=== PATIENT | female | born 1940 | race Caucasian/White ===

== ENCOUNTER 2020-04-28 14:15 | Inpatient (IN) | payer MEDICARE ==
[~2020-04-28] VITALS: Ht 170.2 cm; Wt 106.8 kg
[~2020-04-28 14:15] MED LIST: ACAR50TA5 PO; ALBU0.63 IH; ASPI-1012 PO; BENZ200C53 PO; CEFD300C3 PO; CRAN300T PO; DONE23TA14 PO; FERR325T22 PO; FOLI1TAB15 PO; FURO40TA5 PO; GLIP5TAB11 PO; HC1C1.5 TP; MAGN800O2 PO; MEMA28CA PO; MULT-1052 PO; POLY17PO29 PO; PRAV20TA4 PO; SENN1TAB PO; SERT100T12 PO; TOBR5DRO44 OU; [UNRECOGNIZED DRUG - OTHER] PO
[2020-04-28 14:59] LABS: CREATININE 1.2 mg/dL (0.5-1.5); POTASSIUM 3.4 mmol/L (3.5-5.1)
[2020-04-28 15:00] LABS: BASOPHILS % (AUTO) 0.2 % (0.0-5.0); HEMATOCRIT 27.7 % (36-48); MEAN CORPUSCULAR HEMOGLOBIN 31.6 pg (27.0-33.0); MEAN CORPUSCULAR HGB CONC 32.1 g/dL (32.0-36.0); MEAN CORPUSCULAR VOLUME 98.2 fL (79-99); MONOCYTES % (AUTO) 9.7 % (3.0-13.0); NEUTROPHILS % (AUTO) 81.5 % (40.0-77.0); PLATELET COUNT (AUTO) 239 K/uL (130-400); RED BLOOD CELL COUNT(AUTO) 2.82 MIL/uL (4.00-5.50); RED CELL DISTRIBUTION WIDTH 13.6 % (11.0-15.5)
[2020-04-28 15:04] LABS: BILIRUBIN,TOTAL 0.4 mg/dL (0.2-1.0); TOTAL PROTEIN, SERUM 6.7 g/dL (6.0-8.3)
[2020-04-28 15:41] LABS: INR 0.99 (0.85-1.15); PARTIAL THROMBOPLASTIN TIME 26.9 SEC (26.3-35.5); PROTHROMBIN TIME 10.7 SEC (9.6-11.6)
[2020-04-28] MEDS ORDERED: INSULIN HUMULIN R 100 UNIT/ML 3ML ONE ×2 (16:10→23:21)
[2020-04-28 17:30] LABS: APPEARANCE,URINE Cloudy (CLEAR); BILIRUBIN,URINE Negative (NEGATIVE); COLOR,URINE Yellow (YELLOW); GLUCOSE, URINE (UA) 500 mg/dL (NEGATIVE); KETONES,URINE Negative (NEGATIVE); LEUKOCYTE ESTERASE ,URINE Moderate (NEGATIVE); NITRATE,URINE Positive (NEGATIVE); OCCULT BLOOD,URINE Large (NEGATIVE); PH,URINE 5.5 (5.0-8.0); PROTEIN,URINE POS 1+ mg/dL (NEGATIVE)
[2020-04-28] MEDS ORDERED: CEFTRIAXONE SODIUM 1 GM ONE (17:52)
[2020-04-28 17:59] LABS: BACTERIA,URINE Moderate /HPF (None Seen); MUCUS,URINE Few LPF (None Seen); SQUAMOUS EPITHELIAL CELL,UR Few /HPF (0-2)
[2020-04-28] MEDS ORDERED: ONDANSETRON HCL 4 MG/2 ML VIAL IV PRN (18:45)
[2020-04-28] MEDS ORDERED: HYDRALAZINE HCL 20 MG/ML VIAL IV PRN (18:45)
[2020-04-28] MEDS ORDERED: CEFTRIAXONE SODIUM 1 GM IV SCH (18:45)
[2020-04-28] MEDS ORDERED: LACTULOSE 20 GM/30 ML UDCUP PO PRN (18:45)
[2020-04-28] MEDS ORDERED: ACETAMINOPHEN 325 MG TAB PO PRN ×2 (18:45)
[2020-04-28] MEDS ORDERED: POTASSIUM CHLORIDE 10MEQ/100ML 100 ML IV ONE (23:19)
[2020-04-28] MEDS ORDERED: DEXTROSE 5%-WATER 1,000 ML IV ONE (23:19)
[2020-04-28] MEDS ORDERED: FAMOTIDINE/PF 20 MG/2 ML VIAL IV ONE (23:20)
[2020-04-28] MEDS ORDERED: LIDOCAINE HCL-MPF 1% 2ML VIAL ONE (23:20)
[2020-04-29 01:15] VITALS: BP 138/86
[2020-04-29] MEDS ORDERED: KETO30CR21 TP (01:33)
[2020-04-29] MEDS ORDERED: HYDR30CR77 RC (01:33)
[2020-04-29] MEDS ORDERED: CLON0.1T PO (01:33)
[2020-04-29] MEDS ORDERED: SILV50CR31 TP (01:33)
[2020-04-29] MEDS ORDERED: METH1TAB30 PO (01:33)
[2020-04-29] MEDS: DEXTROSE 5%-WATER 1,000 ML IV SCH ×2 (02:07→21:27)
[2020-04-29] MEDS: MORPHINE SULFATE 2 MG/ML 1ML SYG IV PRN (02:08)
[2020-04-29 03:44] LABS: BASOPHILS % (AUTO) 0.2 % (0.0-5.0); HEMATOCRIT 22.8 % (36-48); LYMPHOCYTES % (AUTO) 8.4 % (21.0-51.0); MEAN CORPUSCULAR HEMOGLOBIN 31.2 pg (27.0-33.0); MEAN CORPUSCULAR HGB CONC 31.6 g/dL (32.0-36.0); MEAN CORPUSCULAR VOLUME 98.7 fL (79-99); MONOCYTES % (AUTO) 11.6 % (3.0-13.0); NEUTROPHILS % (AUTO) 79.2 % (40.0-77.0); PLATELET COUNT (AUTO) 194 K/uL (130-400); RED BLOOD CELL COUNT(AUTO) 2.31 MIL/uL (4.00-5.50); RED CELL DISTRIBUTION WIDTH 13.8 % (11.0-15.5); WHITE BLOOD COUNT (AUTO) 19.5 K/uL (4.8-10.8)
[2020-04-29 04:00] VITALS: BP 119/46
[2020-04-29] MEDS: POTASSIUM CHLORIDE 10MEQ/100ML 100 ML IV PRN ×2 (05:28→12:06)
[2020-04-29] MEDS: INSULIN HUMULIN R 100 UNIT/ML 3ML SQ SCH ×4 (06:08→17:24)
[2020-04-29 08:10] VITALS: BP 131/75
[2020-04-29] MEDS: FAMOTIDINE/PF 20 MG/2 ML VIAL IV SCH (08:31)
[2020-04-29] MEDS ORDERED: POTASSIUM CHLORIDE 20MEQ/100ML 100 ML IV PRN (09:15)
[2020-04-29] MEDS ORDERED: LIDOCAINE HCL-MPF 1% 2ML VIAL IV PRN (09:15)
--- NOTE | 2020-04-29 10:53 | NUR ---
[facility] CM called pt spouse on facesheet, left voicemail to Jose Elias Kidd , pending call back. Obtained info from previous admi records. Pt is bedbound/dependent, lives at home with spouse. Pt has a hospital bed w/air mattress, jeannette lift, walker, wheelchair, shower chair, active w/[facility] 3x/wk. Been to [facility] in the past. DC plan back to home vs SNF, pending spouse and pt to decide. CM to cont to follow up. Addendum: 04/29/20 at 1055 by EDUARDA VILLAGRAN LVN Amended: Links added.
[2020-04-29 11:20] VITALS: BP 133/54
[2020-04-29] MEDS: ZOSYN 3.375GM+NS 50ML 50 ML IV SCH ×2 (12:06→21:27)
[2020-04-29] MEDS: LIDOCAINE HCL-MPF 1% 2ML VIAL IV PRN (12:07)
--- NOTE | 2020-04-29 14:31 | NUR ---
FAMILY UPDATE SARAI PERSONAL SITTER AT BEDSIDE UPDATED WITH STATUS AND PLAN OF CARE, STATES SHE IS CONTACT WITH FAMILY, NO QUESTIONS AT THIS TIME.
[2020-04-29 16:55] VITALS: BP 105/46
[2020-04-29 19:00] VITALS: BP 125/70
[2020-04-30] VITALS (7 sets, daily range): BP systolic 122–134; BP diastolic 42–69
[2020-04-30] MEDS: ZOSYN 3.375GM+NS 50ML 50 ML IV SCH ×3 (05:01→19:52)
[2020-04-30] MEDS: MORPHINE SULFATE 2 MG/ML 1ML SYG IV PRN (05:34)
[2020-04-30 05:56] LABS: BASOPHILS % (AUTO) 0.1 % (0.0-5.0); EOSINOPHILS % (AUTO) 0.4 % (0.0-8.0); LYMPHOCYTES % (AUTO) 7.9 % (21.0-51.0); MEAN CORPUSCULAR HEMOGLOBIN 31.3 pg (27.0-33.0); MEAN CORPUSCULAR HGB CONC 31.4 g/dL (32.0-36.0); MEAN CORPUSCULAR VOLUME 99.5 fL (79-99); MONOCYTES % (AUTO) 8.3 % (3.0-13.0); NEUTROPHILS % (AUTO) 82.2 % (40.0-77.0); PLATELET COUNT (AUTO) 178 K/uL (130-400); RED BLOOD CELL COUNT(AUTO) 1.92 MIL/uL (4.00-5.50); RED CELL DISTRIBUTION WIDTH 13.8 % (11.0-15.5); WHITE BLOOD COUNT (AUTO) 15.2 K/uL (4.8-10.8)
[2020-04-30 06:43] LABS: ALBUMIN 2.2 g/dL (3.5-5.0); BILIRUBIN,TOTAL 0.3 mg/dL (0.2-1.0); CREATININE 0.9 mg/dL (0.5-1.5); POTASSIUM 3.6 mmol/L (3.5-5.1); TOTAL PROTEIN, SERUM 5.8 g/dL (6.0-8.3)
--- NOTE | 2020-04-30 07:00 | NUR ---
PATIENT UPDATE Pt's hemoglobin dropped fr 7.2 last night to 6.7 this am, no bleeding noted externally. Lab asked to repeat the cbc, at the same time included the type and screen with the labs. Belkis Atwood SOFTWARE SECURITY CONSULTANT called and was made aware about what's going on with the pt with orders for type and screen and Cardiology consult. Pt medicated once with morphine 2 mg slow iv push before she was given a bedbath. With expressive aphasia, with a 24 hr private sitter at the bedside. Pt on aspiration precautions, head of the bed up at 40 degrees, repositioned in the bed every 2 hrs ,rt leg with an immobilizer in place.
[2020-04-30 07:06] LABS: HEMATOCRIT 19.1 % (36-48)
[2020-04-30] MEDS: INSULIN HUMULIN R 100 UNIT/ML 3ML SQ SCH ×5 (07:56→20:48)
[2020-04-30] MEDS: FAMOTIDINE/PF 20 MG/2 ML VIAL IV SCH (10:28)
[2020-04-30] MEDS ORDERED: SODIUM CHLORIDE 0.9% 500ML 500 ML IV ONE (13:59)
[2020-04-30] MEDS ORDERED: ACETAMINOPHEN 650 MG SUPPOSITORY RC ONE (20:44)
[2020-04-30] MEDS ORDERED: SODIUM CHLORIDE 0.9% 500ML 500 ML IV SCH (22:00)
--- NOTE | 2020-04-30 22:00 | NUR ---
spoke with sid hanna about patient's fever of 101.4, he ordered a suppository tynelol 650 mg. after i gave it, her temperature was 100.5 and i call him again at 23:20. he ordered blood cultures x 2, 500 ml of sodium chloride bolus, chest x-ray stat, lactic acid and procalcitonin.
[2020-05-01] MEDS: ZOSYN 3.375GM+NS 50ML 50 ML IV SCH ×3 (01:55→19:19)
[2020-05-01 04:06] VITALS: BP 123/63
[2020-05-01 05:00] LABS: BASOPHILS % (AUTO) 0.1 % (0.0-5.0); EOSINOPHILS % (AUTO) 0.6 % (0.0-8.0); HEMATOCRIT 23.7 % (36-48); LYMPHOCYTES % (AUTO) 5.4 % (21.0-51.0); MEAN CORPUSCULAR HEMOGLOBIN 30.5 pg (27.0-33.0); MEAN CORPUSCULAR HGB CONC 31.6 g/dL (32.0-36.0); MEAN CORPUSCULAR VOLUME 96.3 fL (79-99); MONOCYTES % (AUTO) 6.5 % (3.0-13.0); NEUTROPHILS % (AUTO) 86.7 % (40.0-77.0); PLATELET COUNT (AUTO) 190 K/uL (130-400); RED BLOOD CELL COUNT(AUTO) 2.46 MIL/uL (4.00-5.50); RED CELL DISTRIBUTION WIDTH 14.6 % (11.0-15.5); WHITE BLOOD COUNT (AUTO) 20.2 K/uL (4.8-10.8)
[2020-05-01 05:31] LABS: BILIRUBIN,TOTAL 0.6 mg/dL (0.2-1.0); CREATININE 0.9 mg/dL (0.5-1.5); POTASSIUM 3.6 mmol/L (3.5-5.1); TOTAL PROTEIN, SERUM 5.9 g/dL (6.0-8.3)
[2020-05-01] MEDS: INSULIN HUMULIN R 100 UNIT/ML 3ML SQ SCH ×3 (05:58→20:48)
[2020-05-01 07:58] VITALS: BP 128/71
[2020-05-01] MEDS: FAMOTIDINE/PF 20 MG/2 ML VIAL IV SCH (08:08)
[2020-05-01 11:19] VITALS: BP 137/53
[2020-05-01] MEDS ORDERED: SODIUM CHLORIDE 0.9% 250 ML IV ONE (12:18)
[2020-05-01 16:00] VITALS: BP 119/59
--- NOTE | 2020-05-01 16:40 | NUR ---
1458 BPCI Letter given to family member in room.
[2020-05-01 19:35] VITALS: BP 129/68
[2020-05-02] VITALS (7 sets, daily range): BP systolic 119–144; BP diastolic 51–71
[2020-05-02] MEDS: ZOSYN 3.375GM+NS 50ML 50 ML IV SCH ×3 (03:27→19:46)
[2020-05-02 03:49] LABS: BASOPHILS % (AUTO) 0.1 % (0.0-5.0); EOSINOPHILS % (AUTO) 1.6 % (0.0-8.0); HEMATOCRIT 24.5 % (36-48); LYMPHOCYTES % (AUTO) 4.4 % (21.0-51.0); MEAN CORPUSCULAR HEMOGLOBIN 31.2 pg (27.0-33.0); MEAN CORPUSCULAR HGB CONC 32.2 g/dL (32.0-36.0); MEAN CORPUSCULAR VOLUME 96.8 fL (79-99); MONOCYTES % (AUTO) 7.8 % (3.0-13.0); NEUTROPHILS % (AUTO) 85.1 % (40.0-77.0); NUCLEATED RED BLOOD CELLS 0.1 % (0.0-0.19); PLATELET COUNT (AUTO) 228 K/uL (130-400); RED BLOOD CELL COUNT(AUTO) 2.53 MIL/uL (4.00-5.50); RED CELL DISTRIBUTION WIDTH 14.3 % (11.0-15.5); WHITE BLOOD COUNT (AUTO) 23.9 K/uL (4.8-10.8)
[2020-05-02 04:04] LABS: BILIRUBIN,TOTAL 0.6 mg/dL (0.2-1.0); CREATININE 0.8 mg/dL (0.5-1.5); POTASSIUM 3.5 mmol/L (3.5-5.1); TOTAL PROTEIN, SERUM 6.2 g/dL (6.0-8.3)
[2020-05-02 04:32] LABS: CRP QUANTITATIVE 507.3 mg/L (0.00-9.0)
[2020-05-02] MEDS: INSULIN HUMULIN R 100 UNIT/ML 3ML SQ SCH ×4 (05:54→22:22)
[2020-05-02] MEDS ORDERED: POTASSIUM CHLORIDE 20 MEQ ERTAB PO PRN (08:00)
[2020-05-02] MEDS: FAMOTIDINE/PF 20 MG/2 ML VIAL IV SCH (09:07)
[2020-05-02] MEDS: POTASSIUM CHLORIDE 10% ELIXIR 20 MEQ/15 ML UDCUP PO PRN ×2 (09:16→18:32)
[2020-05-02] MEDS ORDERED: VANCOMYCIN PROTOCOL PER PHARMACY IV SCH (11:45)
[2020-05-02] MEDS ORDERED: COMPOUND IV REFRIGERATED 1 EACH IVSOLN MISC PRN (12:00)
[2020-05-02] MEDS: VANCOMYCIN 1.25 GM in SODIUM CHLORIDE 0.9% 250 ML IV SCH (13:17)
--- NOTE | 2020-05-02 17:30 | NUR ---
1 UNIT Packed Red Blood Cells started
--- NOTE | 2020-05-02 19:30 | NUR ---
PM Assessment Received pt with PRBC unit # [id number] in progress being infused via dial a flow, need to stop at this time site noted infiltrated. Attempt to find a new acces, unsuccessful together with another nurse Rosa RN. Phoned wiliam ZAMUDIO stated to asked CCU charge nurse Lourdes for assistance & to use a vein finder. Phoned Lourdes MCKEON & was made aware I need assistance in re- starting the IV access since I have a blood transfusion that need to be infuse & be finish by 2129. Per Lourdes MCKEON stated she will be coming to assist.
--- NOTE | 2020-05-02 20:40 | NUR ---
Re: Infiltrated IV Access Lourdes dry room operator nurse from CCU brought Cat RN from ED all gear up stated wearing new gown, shield, mask,shoe cover as reported will be starting a new IV access on this case.
--- NOTE | 2020-05-02 21:05 | NUR ---
Re: New IV Access Cat RN successfully able to start aseptically a new access x 2 attempt to the left arm, failed then to the right breast area close to the nipple, gauge 22, blood re-started at this time, at 150 cc/hr via dial a flow. Requested private pay sitter at the bedside to make sure pt won't place her hand on top of the right breast as this is where the new IV access is located, agreed.
--- NOTE | 2020-05-02 21:30 | NUR ---
Re: PRBC transfusion One unit PRBC transfusion completed at this time with no reactions noted.
--- NOTE | 2020-05-02 22:25 | NUR ---
Re: Last BM Per private sitter at the bedside Omar stated last BM on their record was 04/27/2020, attempt to give pt slowly Lactulose orally, given only 5cc when pt noted to constantly coughing, discontinued the Lactulose. I verified with the sitter if pt does cough when being fed, stated since pt got sick this has been happening.I inform the sitter that I will notify MD in AM of this issue as we might need to have a swallowing test to make sure pt won't be aspirating. Sitter instructed not to give the pt anything orally for now.
[2020-05-03] MEDS: VANCOMYCIN 1.25 GM in SODIUM CHLORIDE 0.9% 250 ML IV SCH ×2 (00:21→12:53)
[2020-05-03] MEDS: ZOSYN 3.375GM+NS 50ML 50 ML IV SCH ×3 (03:41→21:11)
[2020-05-03 03:43] LABS: HEMATOCRIT 24.9 % (36-48); MEAN CORPUSCULAR HEMOGLOBIN 29.7 pg (27.0-33.0); MEAN CORPUSCULAR HGB CONC 30.9 g/dL (32.0-36.0); MEAN CORPUSCULAR VOLUME 96.1 fL (79-99); NUCLEATED RED BLOOD CELLS 0.2 % (0.0-0.19); RED BLOOD CELL COUNT(AUTO) 2.59 MIL/uL (4.00-5.50); RED CELL DISTRIBUTION WIDTH 15.9 % (11.0-15.5); WHITE BLOOD COUNT (AUTO) 18.2 K/uL (4.8-10.8)
[2020-05-03 03:55] LABS: CREATININE 0.8 mg/dL (0.5-1.5); POTASSIUM 3.5 mmol/L (3.5-5.1)
[2020-05-03 04:00] VITALS: BP 140/71
[2020-05-03 04:11] LABS: ALBUMIN 1.8 g/dL (3.5-5.0); BILIRUBIN,TOTAL 0.6 mg/dL (0.2-1.0); TOTAL PROTEIN, SERUM 5.9 g/dL (6.0-8.3)
[2020-05-03 04:18] LABS: CRP QUANTITATIVE 380.1 mg/L (0.00-9.0)
[2020-05-03] MEDS: INSULIN HUMULIN R 100 UNIT/ML 3ML SQ SCH ×4 (06:27→22:58)
[2020-05-03 08:01] VITALS: BP 139/73
[2020-05-03] MEDS ORDERED: BISACODYL 10 MG SUPP.RECT RC SCH (08:45)
[2020-05-03] MEDS: FAMOTIDINE/PF 20 MG/2 ML VIAL IV SCH (09:00)
[2020-05-03 12:06] VITALS: BP 154/48
--- NOTE | 2020-05-03 12:12 | NUR ---
DC PLAN CALLED PATIENT ROOM. PATIENT HAS A PRIVATE CAREGIVER AT BEDSIDE. SAID SHE HAD NOT BEEN TOLD FROM NURSING STAFF REGARDING THERAPY. SAID TO SPEAK TO NURSE TO SEE IF THAT IS EVEN A ORDER. PATIENT STILL PENDING SURGERY. PER NURSING NOTE NO BM SINCE 04/27. REFUGIO WILL CONTINUE TO FOLLOW. Addendum: 05/03/20 at 1214 by PATRICK BENNETT RN CM Amended: Links added.
[2020-05-03 15:28] LABS: INR 0.92 (0.85-1.15)
[2020-05-03 16:25] VITALS: BP 142/44
--- NOTE | 2020-05-03 17:00 | NUR ---
BOWEL MOVEMENT pt had a bowel movement x 1 today incontinent after suppository given specimen sent to lab for occult blood
--- NOTE | 2020-05-03 19:15 | NUR ---
FOLLOWED UP REGARDING PRBC TRANSFUSION: Ordered to transfused 2 units of PTR== Addendum: 05/03/20 at 2018 by KIYA VIGIL RN RN Ordered to Type and Screen, transfused 2 units of PRBC. To give 1 unit of bag first then to transfused second unit after H and H was checked.
[2020-05-03 20:00] VITALS: BP 137/76
--- NOTE | 2020-05-03 20:31 | NUR ---
PICC LINE UNSUCCESSFUL Reported to hospitalist Ava FNP that its impossible to give a unit of bag , since IV site located at the right side of the breast. Ordered to do H and H q6hrs x 3.
--- NOTE | 2020-05-03 20:36 | NUR ---
UNABLE TO ACCESS LEFT ARM BASILIC, AND CEPHALIC VEINS AFTER MULTIPLE ATTEMPTS. PT VERY DIFFICULT IV ACCESS. RIGHT ARM NOT FAVORABLE BECAUSE PT HAS VERY LIMITED RANGE OF MOTION. WILL ASK FOR ANOTHER PICC NURSE TO ATTEMPT PICC TOMORROW.
--- NOTE | 2020-05-03 20:55 | NUR ---
PIV LINE ACCESS: EUGENE Hawthorne tried to insert PIV line #20 g aseptically to Rt Wrist but unsuccessful x1 attempt. There's a good blood return but blew up when flushing done.
[2020-05-03 21:16] LABS: HEMATOCRIT 26.3 % (36-48)
[2020-05-03 23:50] VITALS: BP 125/70
[2020-05-04] MEDS: VANCOMYCIN 1.25 GM in SODIUM CHLORIDE 0.9% 250 ML IV SCH ×3 (01:01→23:58)
[2020-05-04 03:55] VITALS: BP 131/62
[2020-05-04 05:15] LABS: HEMATOCRIT 24.5 % (36-48); MEAN CORPUSCULAR HEMOGLOBIN 29.6 pg (27.0-33.0); MEAN CORPUSCULAR HGB CONC 30.2 g/dL (32.0-36.0); NUCLEATED RED BLOOD CELLS 0.3 % (0.0-0.19); RED BLOOD CELL COUNT(AUTO) 2.5 MIL/uL (4.00-5.50); RED CELL DISTRIBUTION WIDTH 15.7 % (11.0-15.5); WHITE BLOOD COUNT (AUTO) 11.9 K/uL (4.8-10.8)
[2020-05-04 05:38] LABS: ALBUMIN 1.7 g/dL (3.5-5.0); BILIRUBIN,TOTAL 0.5 mg/dL (0.2-1.0); CREATININE 0.8 mg/dL (0.5-1.5); POTASSIUM 3.3 mmol/L (3.5-5.1); TOTAL PROTEIN, SERUM 5.7 g/dL (6.0-8.3)
[2020-05-04] MEDS: ZOSYN 3.375GM+NS 50ML 50 ML IV SCH ×3 (05:43→20:20)
[2020-05-04] MEDS: INSULIN HUMULIN R 100 UNIT/ML 3ML SQ SCH ×4 (06:44→20:18)
[2020-05-04 08:00] VITALS: BP 145/88
[2020-05-04] MEDS: FAMOTIDINE/PF 20 MG/2 ML VIAL IV SCH (09:00)
--- NOTE | 2020-05-04 14:18 | NUR ---
RD NOTIFICATION Pt admitted with R-Femur Fracture, UTI. Pt with weakness and AMS, Alzheimer's. Pt tolerating 75gm CC, Finely chopped diet order as per EMR. Poor PO intake. Pending PICC, pending transfusion. Gastroenterology consulted. WBC 11.9, Hgb 7.4, Na 158, BG 195, Alb 1.7. Recommend Glucerna TID, as medically feasible. Recommend 60mL ProMod BID, as medically feasible. RD to continue to monitor. Please notify RD as additional nutrition concerns arise. Thank you.
--- NOTE | 2020-05-04 15:26 | NUR ---
DYSPHAGIA EVAL COMPLETED. +S/S OF ASPIRATION. RECOMMEND SHORT-TERM ALTERNATE MEANS OF NUTRITION/HYDRATION. RECOMMENDATIONS: DYSPHAGIA THERAPY 3-5X WEEK TO INCREASE ORAL MOTOR ROM AND PHARYNGEAL SWALLOW: LTG#1: Pt WILL TOLERATE LEAST RESTRICTIVE DIET TO MEET NUTRITION/HYDRATION WITH NO S/S OF ASPIRATION. LTG#2: SKILLED EDUCATION Pt/FAMILY/STAFF STG#1: Pt WILL PARTICIPATE IN THERAPEUTIC TRIALS OF PUREED, NECTAR-THICK LIQUIDS WITH NO OVERT S/S OF ASPIRATION. STG#2: PT WILL BE ABLE TO PARTICIPATE IN MBSS AFTER 2-4 WEEKS OF THERAPEUTIC INTERVENTION. STG#3: SKILLED EDUCATION Pt/FAMILY/STAFF. [id number] FIRER LOCOMOTIVE SPOKE TO MACKENZIE MENESES AND DAUGHTER SARANYA PHELPS ON RESULTS AND RECOMMENDATIONS FOR ALTERNATE MEANS OF NUTRITION/HYDRATION. FIRER LOCOMOTIVE EDUCATED FAMILY ON RISKS AND CONSEQUENCES OF ASPIRATION. FIRER LOCOMOTIVE REVIEWED EFFECTS OF ALZHEIMER'S ON SWALLOWING FUNCTION (VERBALIZED MD HAD REVIEWED WITH THEM WHEN Pt WAS DIAGNOSED 15 YEARS AGO). THEY VERBALIZED THAT THEY WOULD PREFER QUALITY OF LIFE AT THIS POINT IN TIME. THEREFORE, THEY WOULD NOT WANT LONG-TERM ALTERNATE MEANS OF NUTRITION/HYDRATION. THEY ARE AGREEABLE TO SHORT-TERM ALTERNATE MEANS OF NUTRITION/HYDRATION WITH ATTEMPTS FOR P.O. THEY PLAN TO RESUME P.O. WHEN THEY GO HOME. Addendum: 05/04/20 at 1537 by GAURANG TRIPATHI [facility] Amended: Links added.
[2020-05-04 16:00] VITALS: BP 149/78
--- NOTE | 2020-05-04 17:24 | NUR ---
CALL FROM FITO DAUGHTER OF PATIENT AGREED WITH SPEECH ON PLACING NGT..
--- NOTE | 2020-05-04 18:00 | NUR ---
called to picc line nurse regarding noticed leaking to midline . per picc line nurse edilberto line is in place to just reinforce with a dressing and monitor . will cont to monitor
[2020-05-04 20:00] VITALS: BP 132/99
[2020-05-04 20:56] LABS: HEMATOCRIT 26.8 % (36-48)
[2020-05-04] MEDS: LIDOCAINE HCL-MPF 1% 2ML VIAL IV PRN (21:35)
[2020-05-04] MEDS: POTASSIUM CHLORIDE 10MEQ/100ML 100 ML IV PRN (21:36)
[2020-05-05] VITALS: BP 145/66
--- NOTE | 2020-05-05 02:57 | NUR ---
patient's midline is leaking zosyn all over the bed and her gown as well as on the kerlex that i wrapped around her. spoke with head housekeeper, meron, about it and she will let the picc line nurse from the day know to reevaluate the midline in the am.
[2020-05-05] MEDS: ZOSYN 3.375GM+NS 50ML 50 ML IV SCH (02:58)
[2020-05-05 03:36] LABS: BASOPHILS % (AUTO) 0.3 % (0.0-5.0); HEMATOCRIT 24.6 % (36-48); LYMPHOCYTES % (AUTO) 8.5 % (21.0-51.0); MEAN CORPUSCULAR HEMOGLOBIN 29.9 pg (27.0-33.0); MEAN CORPUSCULAR HGB CONC 30.9 g/dL (32.0-36.0); MEAN CORPUSCULAR VOLUME 96.9 fL (79-99); NEUTROPHILS % (AUTO) 74.7 % (40.0-77.0); NUCLEATED RED BLOOD CELLS 0.4 % (0.0-0.19); PLATELET COUNT (AUTO) 273 K/uL (130-400); RED BLOOD CELL COUNT(AUTO) 2.54 MIL/uL (4.00-5.50); RED CELL DISTRIBUTION WIDTH 15.3 % (11.0-15.5)
[2020-05-05 03:55] LABS: ALBUMIN 1.8 g/dL (3.5-5.0); BILIRUBIN,TOTAL 0.6 mg/dL (0.2-1.0); CREATININE 0.9 mg/dL (0.5-1.5); POTASSIUM 3.2 mmol/L (3.5-5.1); TOTAL PROTEIN, SERUM 5.9 g/dL (6.0-8.3)
[2020-05-05 04:00] VITALS: BP 158/88
[2020-05-05] MEDS: POTASSIUM CHLORIDE 10% ELIXIR 20 MEQ/15 ML UDCUP PO PRN ×3 (04:26→20:01)
[2020-05-05] MEDS: INSULIN HUMULIN R 100 UNIT/ML 3ML SQ SCH ×3 (06:19→20:46)
[2020-05-05 08:23] VITALS: BP 159/76
[2020-05-05 09:40] LABS: HEMATOCRIT 26.1 % (36-48)
--- NOTE | 2020-05-05 09:57 | NUR ---
RD FOLLOW UP Pt s/p ST eval;+S/S aspiration, short term altered means nutrition recommend. Recommend continuous Tube Feeding, Vital AF 1.2 @goal of 50mls/hr (1440kcal, 90gm protein, 973 free H2O). Recommend Flush of 150mls Q4Hrs. Recommendations faxed to 3rd floor, Pod A (ext. [phone]). RN notified. NUTRITION NOTE: WBC 14.0, Na 157, K 3.2 BG 223, Alb 1.8. RD to continue to monitor.
[2020-05-05] MEDS: FAMOTIDINE/PF 20 MG/2 ML VIAL IV SCH (10:27)
[2020-05-05 11:45] VITALS: BP 160/71
[2020-05-05 14:06] LABS: INR 0.98 (0.85-1.15); PROTHROMBIN TIME 10.6 SEC (9.6-11.6)
--- NOTE | 2020-05-05 14:25 | NUR ---
TREATMENT COMPLETED. Pt'S DAUGHTER SARANYA AT BEDSIDE AT THE TIME OF THE SESSION. Pt RAISED TO 90 DEGREES IN BED DURING THE SESSION. SOLE INKER PROVIDED ORAL CARE. Pt PARTICIPATED IN THERAPEUTIC TRIALS OF ADVANCED TRIALS OF THIN LIQUIDS VIA TSP X5 WITH IMPROVED LINGUAL LATERALIZATION. LABIAL SEAL IS WEAK WITH ANTERIOR SPILLAGE NOTED. Pt WITH TRIALS OF NECTAR-THICK LIQUIDS X2 WITH IMPROVED SWALLOW TRIGGER AND NO OVERT S/S OF ASPIRATION. Pt WITH +S.S OF ASPIRATION OF WEAK COUGH RESPONSE WITH THIN LIQUIDS VIA STRAW (INTAKE AT HOME WITH STRAW). Pt PARTICIPATED IN TRIALS OF PUREED TEXTURE X3 WITH NO OVERT S/S OF ASPIRATION. RESIDUE PRESENT IN TONGUE BODY WITH MULTIPLE SWALLOWS PRESENT. SOLE INKER EDUCATED DAUGHTER ON RISKS AND CONSEQUENCES OF ASPIRATION. NG TUBE IN PLACE AT THIS TIME. SKILLED SPEECH THERAPY CONTINUED TO BE RECOMMENDED 3-5X WEEK. SOLE INKER COORDINATED CARE WITH NURSE SANJIV. Addendum: 05/05/[address] Amended: Links added.
--- NOTE | 2020-05-05 14:26 | NUR ---
ORDER NOTED IN CHART FOR JANUARY CATH PLACEMENT BY IR. CLARIFIED ORDER WITH DR. MARIELA TRONCOSO, WHO STATED ORDER SHOULD READ CENTRAL LINE PLACEMENT FOR IV ANTIBIOTICS AND FLUIDS. ORDER EDITED TO REFLECT CORRECT PROCEDURE. CALL PLACED TO EXTRUSION SUPERVISOR TO NOTIFY, NO ANSWER. MESSAGE SENT TO EXTRUSION SUPERVISORCHIEF FISHERY DIVISION REQUESTING CALL BACK.
--- NOTE | 2020-05-05 15:15 | NUR ---
150ML OF WATER GIVEN VIA NG. EARLIER DR. FLANAGAN GAVE OK TO NG FOR FEEDINGS.STARTED ON VITAL AF AT 20 ML/HR
--- NOTE | 2020-05-05 16:00 | NUR ---
TOWER EXCAVATOR OPERATOR HERE TO PLACE CENTRAL LINE FOR ABX. THERAPY AND PENDING SURG 05/06/20.VERY DIFFICULTTO GET A LINE AND ENDED PLACING 18G TO LT. SIDE NECK
[2020-05-05 16:10] VITALS: BP 168/45
[2020-05-05] MEDS ORDERED: LIDOCAINE HCL MPF 1% 5ML VIAL ONE (17:24)
--- NOTE | 2020-05-05 18:00 | NUR ---
SHAMIKA UP NOW, PENDING 1 UNIT OF BLOOD AND NEEDS POT. COVERAGE. REPORT PASSED ON TO PM NURSE. PHONE CONSENT OBTAINED FOR ORIF OF RT. FEMUR IN AM . IMMOBILIZER IN PLACE RT. LEG.
[2020-05-05] MEDS: VANCOMYCIN 1.25 GM in SODIUM CHLORIDE 0.9% 250 ML IV SCH (18:03)
[2020-05-05] MEDS: DEXTROSE 5%-WATER 1,000 ML IV SCH (18:04)
[2020-05-05] MEDS ORDERED: MEROPENEM 1 GM VIAL ONE (18:26)
[2020-05-05 19:00] VITALS: BP 112/34
--- NOTE | 2020-05-05 20:00 | NUR ---
patient was placed on feeding pump 20 ml/hr of vital af by day nurse. i flushed the tube at 20:00 with 150ml of water. i change the feeding rate to 25 ml/hour flushed it again at 00:00 with 150 ml of water after i discontinued the feeding temporarily due to npo after midnight for procedure (orif of right femur). after the procedure, patient is to start at 25 ml/hour feeding and flush every 4 hours with 150 ml of water. increase feeding every 5 hours until reach goal of 50 ml/hour
[2020-05-05] MEDS: MEROPENEM 1 GM VIAL IVP SCH (20:01)
[2020-05-05] MEDS: ACETAMINOPHEN 650 MG SUPPOSITORY RC PRN (20:47)
[2020-05-05 21:21] LABS: HEMATOCRIT 26.7 % (36-48)
--- NOTE | 2020-05-05 22:26 | NUR ---
REMOVED PATIENT'S MIDLINE ON LEFT UPPER ARM BECAUSE IT WAS LEAKING AND NONFUNCTIONING. CATHETER TIP INTACT. REMOVED IV CATHETER ON THE RIGHT BREAST AND CATHETER TIP INTACT. STARTED GIVING 1 UNIT OF BLOOD AT 21:35. NO ISSUES
[2020-05-06] VITALS (23 sets, daily range): BP systolic 119–176; BP diastolic 52–96
[2020-05-06] MEDS: POTASSIUM CHLORIDE 10% ELIXIR 20 MEQ/15 ML UDCUP PO PRN (00:09)
[2020-05-06] MEDS: VANCOMYCIN 1.25 GM in SODIUM CHLORIDE 0.9% 250 ML IV SCH ×2 (00:09→12:00)
[2020-05-06] MEDS ORDERED: SODIUM CHLORIDE 0.9% 100 ML IV ONE (02:44)
[2020-05-06] MEDS: MEROPENEM 1 GM VIAL IVP SCH ×3 (02:49→23:07)
[2020-05-06 03:40] LABS: HEMATOCRIT 29.5 % (36-48); MEAN CORPUSCULAR HGB CONC 31.9 g/dL (32.0-36.0); MEAN CORPUSCULAR VOLUME 94.2 fL (79-99); NUCLEATED RED BLOOD CELLS 0.7 % (0.0-0.19); RED BLOOD CELL COUNT(AUTO) 3.13 MIL/uL (4.00-5.50); RED CELL DISTRIBUTION WIDTH 16.3 % (11.0-15.5)
[2020-05-06 04:02] LABS: ALBUMIN 1.7 g/dL (3.5-5.0); BILIRUBIN,TOTAL 0.8 mg/dL (0.2-1.0); CREATININE 0.8 mg/dL (0.5-1.5); TOTAL PROTEIN, SERUM 5.7 g/dL (6.0-8.3)
[2020-05-06] MEDS: INSULIN HUMULIN R 100 UNIT/ML 3ML SQ SCH ×3 (04:44→16:30)
[2020-05-06] MEDS: FAMOTIDINE/PF 20 MG/2 ML VIAL IV SCH (09:09)
[2020-05-06] MEDS ORDERED: SUCCINYLCHOLINE CHLORIDE 20 MG/ML 10 ML VIAL ONE (10:33)
[2020-05-06] MEDS ORDERED: PROPOFOL 10 MG/ML 20ML VIAL IV ONE (10:33)
[2020-05-06] MEDS ORDERED: LIDOCAINE PF 2% 5ML ABBOJECT ONE (10:33)
[2020-05-06] MEDS ORDERED: ROCURONIUM 10MG/1ML SYR 10 MG/ML ML ONE (10:33)
[2020-05-06] MEDS ORDERED: FENTANYL CITRATE PF 50 MCG/1 ML 2ML VIAL ONE (10:33)
[2020-05-06] MEDS ORDERED: ROPIVACAINE 0.5% 5MG/ML 30ML IJ ONE (10:34)
--- NOTE | 2020-05-06 11:15 | NUR ---
SURGERY pt transferred to surgical holding area via bed ,daughter present at bedside
--- NOTE | 2020-05-06 11:52 | NUR ---
HOLD TREATMENT Pt OUT OF ROOM FOR SURGERY. HEALTH COMMISSIONER WILL FOLLOW UP TOMORROW. Addendum: 05/06/20 at 1153 by GAURANG TRIPATHI [facility] Amended: Links added.
[2020-05-06] MEDS: DEXTROSE 5%-WATER 1,000 ML IV SCH (12:00)
[2020-05-06] MEDS ORDERED: PHENYLEPHRINE HCL 10 MG/ML 1ML VIAL IV ONE (12:04)
[2020-05-06] MEDS ORDERED: SODIUM CHLORIDE 0.9% 10 ML VIAL ONE (12:04)
[2020-05-06] MEDS ORDERED: GLYCOPYRROLATE 1 MG/5 ML SYRINGE ONE (12:13)
[2020-05-06] MEDS ORDERED: NEOSTIGMINE 5MG/5ML SYR IV ONE (12:44)
[2020-05-06] MEDS ORDERED: VANCOMYCIN HCL 1 GM VIAL ONE (13:00)
[2020-05-06] MEDS ORDERED: ESMOLOL HCL 10 MG/ML 10 ML VIAL ONE (13:17)
[2020-05-07] MEDS: INSULIN HUMULIN R 100 UNIT/ML 3ML SQ SCH ×4 (01:36→17:05)
[2020-05-07] MEDS: DEXTROSE 5%-WATER 1,000 ML IV SCH (01:39)
[2020-05-07 02:02] VITALS: BP 141/62
[2020-05-07 03:52] VITALS: BP 134/57
[2020-05-07] MEDS: MEROPENEM 1 GM VIAL IVP SCH ×3 (06:31→22:26)
[2020-05-07 07:27] LABS: HEMATOCRIT 29.3 % (36-48); MEAN CORPUSCULAR HEMOGLOBIN 30.1 pg (27.0-33.0); MEAN CORPUSCULAR HGB CONC 31.4 g/dL (32.0-36.0); MEAN CORPUSCULAR VOLUME 95.8 fL (79-99); NUCLEATED RED BLOOD CELLS 0.3 % (0.0-0.19); RED BLOOD CELL COUNT(AUTO) 3.06 MIL/uL (4.00-5.50); RED CELL DISTRIBUTION WIDTH 16.2 % (11.0-15.5); WHITE BLOOD COUNT (AUTO) 17.5 K/uL (4.8-10.8)
[2020-05-07 07:36] LABS: POTASSIUM 3.4 mmol/L (3.5-5.1)
[2020-05-07 07:46] VITALS: BP 139/54
[2020-05-07] MEDS ORDERED: 0.9% SODIUM CHLORIDE 1000 ML IV BAG IV PRN (08:15)
[2020-05-07] MEDS ORDERED: SODIUM CHLORIDE 0.9% 1000ML 1,000 ML IV PRN (08:15)
[2020-05-07] MEDS ORDERED: NITROGLYCERIN 0.4 MG SL TAB SL PRN (08:15)
[2020-05-07] MEDS ORDERED: HEPARIN SODIUM 5000UNIT/ML 1ML VIAL IJ PRN ×2 (08:15)
[2020-05-07] MEDS ORDERED: ACETAMINOPHEN 325 MG TAB PO PRN (08:15)
[2020-05-07] MEDS ORDERED: LIDOCAINE HCL-MPF 1% 2ML VIAL IJ PRN (08:15)
[2020-05-07] MEDS ORDERED: INSULIN GLARGINE 100 UNITS/ML 10 ML VIAL SQ SCH (10:00)
--- NOTE | 2020-05-07 10:00 | NUR ---
DYSPHAGIA RE-EVALUATION COMPLETED. Pt PRESENTS WITH HIGH RISK FOR ASPIRATION. RECOMMEND NPO, SHORT-TERM ALTERNATE MEANS OF NUTRITION/HYDRATION. Pt'S DAUGHTER PRESENT AT THE TIME OF THE EVALUATION. POST ANESTHESIA CARE UNIT NURSE EDUCATED DAUGHTER ON RISKS AND CONSEQUENCES OF ASPIRATION. POST ANESTHESIA CARE UNIT NURSE REVIEWED POSSIBLE LONG-TERM ALTERNATE MEANS OF NUTRITION WITH DAUGHTER. SHE REPORTS THAT SHE WILL DISCUSS WITH HER FATHER, BUT THEY DID NOT WANT A PERMANENT TUBE FEEDING. POST ANESTHESIA CARE UNIT NURSE EDUCATED DAUGHTER ON RISKS OF POOR NUTRITION IF THEY DECIDED TO CONTINUE P.O. WITH LOW TO NO P.O. DAUGHTER VERBALIZED UNDERSTANDING OF RISKS AND CONSEQUENCES. RECOMMENDATIONS: 1. CONTINUE WITH INITIAL PLAN OF CARE 2. RE-EVALUATION WHEN Pt'S OVERALL STATUS IMPROVES. Addendum: 05/07/20 at 1233 by GAURANG TRIPATHI [facility] Amended: Links added.
[2020-05-07] MEDS: FAMOTIDINE/PF 20 MG/2 ML VIAL IV SCH (10:43)
[2020-05-07] MEDS: VANCOMYCIN 1GM+NS 250ML 250 ML IV SCH ×2 (10:43→22:26)
[2020-05-07 11:20] VITALS: BP 135/63
--- NOTE | 2020-05-07 13:12 | NUR ---
RD FOLLOW UP Pt tolerating tube feeding, Vital AF 1.2 @35mls/hr (Low rate tube feeding). Pt with elevated BG (353). S/p procedure. S/p HOT STAMP OPERATOR re-eval. Mcfp altered means nutrition recommended, however Pt family refusing. WBC 17.5, K 3.4, GFR 56, BG 353, Alb 1.7. Recommend continue low rate tube feeding at this time, as medically feasible. RD to continue to monitor. Please notify as additional nutrition concerns arise. Thank you.
[2020-05-07] MEDS: ACETAMINOPHEN 650 MG SUPPOSITORY RC PRN (14:18)
[2020-05-07 16:10] VITALS: BP 134/59
[2020-05-07 19:59] VITALS: BP 139/60
[2020-05-08] VITALS (7 sets, daily range): BP systolic 107–144; BP diastolic 60–112
[2020-05-08] MEDS: INSULIN HUMULIN R 100 UNIT/ML 3ML SQ SCH ×5 (01:19→21:52)
[2020-05-08] MEDS: INSULIN GLARGINE 100 UNITS/ML 10 ML VIAL SQ SCH ×3 (01:20→21:54)
[2020-05-08] MEDS: POTASSIUM CHLORIDE 10% ELIXIR 20 MEQ/15 ML UDCUP PO PRN (01:21)
[2020-05-08] MEDS: MEROPENEM 1 GM VIAL IVP SCH ×3 (05:54→21:51)
[2020-05-08] MEDS: DEXTROSE 5%-WATER 1,000 ML IV SCH (05:54)
[2020-05-08] MEDS: FAMOTIDINE/PF 20 MG/2 ML VIAL IV SCH (10:59)
[2020-05-08] MEDS: VANCOMYCIN 1GM+NS 250ML 250 ML IV SCH ×2 (12:45→21:51)
--- NOTE | 2020-05-08 14:39 | NUR ---
TREATMENT COMPLETED. Pt'S DAUGHTER SARANYA AT BEDSIDE AT THE TIME OF THE SESSION. Pt RAISED TO 90 DEGREES IN BED DURING THE SESSION. SLUICE TENDER PROVIDED ORAL CARE. Pt PARTICIPATED IN THERAPEUTIC TRIALS OF ADVANCED TRIALS OF THIN LIQUIDS VIA TSP X2 WITH DECREASED BOLUS CONTROL WITH POOR LABIAL SEAL; ANTERIOR SPILLAGE NOTED. Pt WITH TRIALS OF NECTAR-THICK LIQUIDS X2 WITH IMPROVED SWALLOW TRIGGER AND NO OVERT S/S OF ASPIRATION. Pt PARTICIPATED IN TRIALS OF PUREED TEXTURE X1 WITH POOR BOLUS FORMATION AND MANIPULATION. BOLUS IN TONGUE BODY AND FLOOR OF MOUTH REQUIRING REMOVAL WITH SUCTION. SLUICE TENDER EDUCATED DAUGHTER ON RISKS AND CONSEQUENCES OF ASPIRATION. NG TUBE IN PLACE AT THIS TIME. SKILLED SPEECH THERAPY CONTINUED TO BE RECOMMENDED 3-5X WEEK. SLUICE TENDER COORDINATED CARE WITH NURSE RICHMOND. DAUGHTER REPORTS THAT SHE CONTINUES TO DE INCLINED TO NO PROCEED WITH PEG TUBE. PLAN IS TO REMOVE NG TUBE PRIOR TO D/C HOME AND PROVIDE P.O. IN THE HOME. SLUICE TENDER REITERATED HIGH RISK FOR ASPIRATION. SHE VERBALIZED UNDERSTANDING. Addendum: 05/08/[address] Amended: Links added.
[2020-05-09 04:00] VITALS: BP 118/74
[2020-05-09 04:08] LABS: HEMATOCRIT 25.4 % (36-48); MEAN CORPUSCULAR HEMOGLOBIN 29.6 pg (27.0-33.0); MEAN CORPUSCULAR HGB CONC 31.5 g/dL (32.0-36.0); MEAN CORPUSCULAR VOLUME 94.1 fL (79-99); NUCLEATED RED BLOOD CELLS 0.3 % (0.0-0.19); RED BLOOD CELL COUNT(AUTO) 2.7 MIL/uL (4.00-5.50); RED CELL DISTRIBUTION WIDTH 15.4 % (11.0-15.5); WHITE BLOOD COUNT (AUTO) 14.1 K/uL (4.8-10.8)
[2020-05-09 04:24] LABS: CREATININE 0.7 mg/dL (0.5-1.5); POTASSIUM 3.2 mmol/L (3.5-5.1)
[2020-05-09] MEDS: MEROPENEM 1 GM VIAL IVP SCH ×3 (05:41→20:52)
[2020-05-09] MEDS: POTASSIUM CHLORIDE 10% ELIXIR 20 MEQ/15 ML UDCUP PO PRN ×3 (06:43→12:04)
[2020-05-09] MEDS: INSULIN HUMULIN R 100 UNIT/ML 3ML SQ SCH ×4 (06:45→20:50)
[2020-05-09 08:46] VITALS: BP 130/62
[2020-05-09] MEDS: VANCOMYCIN 1GM+NS 250ML 250 ML IV SCH ×2 (09:16→20:51)
[2020-05-09] MEDS: FAMOTIDINE/PF 20 MG/2 ML VIAL IV SCH (09:16)
[2020-05-09] MEDS: INSULIN GLARGINE 100 UNITS/ML 10 ML VIAL SQ SCH ×2 (09:19→21:11)
[2020-05-09] MEDS: DEXTROSE 5%-WATER 1,000 ML IV SCH ×2 (09:21→17:15)
[2020-05-09 11:51] VITALS: BP 137/66
[2020-05-09 17:00] VITALS: BP 126/68
--- NOTE | 2020-05-09 17:15 | NUR ---
DYSPHAGIA TREATMENT COMPLETED CARE PROVIDER PRESENT DURING TREATMENT. CAPSULE FILLING MACHINE OPERATOR PROVIDED ORAL CARE AND RAISED PATIENT TO 90 DEGREE TO INITIATE P.O. TRIALS. Pt WITH OPEN MOUTH POSTURE AND NOT FOLLOWING ONE STEP COMMANDS. TRIALS OF THIN LIQUIDS VIA TSP X 2 WITH BOLUS LOSS IN ORAL CAVITY, DECREASED INTRA ORAL SENSATION, AND DELAYED SWALLOW RESPONSE. POSITIVE S/S OF ASPIRATION WITH THIN LIQUIDS WERE NOTED OF WET VOCAL QUALITY AND DIMINISHED COUGH, UNABLE TO CLEAR RESIDUE WITHIN PHARYNX. TRIALS OF NECTAR THICK LIQUIDS X2 WITH DECREASED PHARYNGEAL RESPONSE TRIGGER AND CONTINUED +S/S OF ASPIRATION OF WET VOCAL QUALITY. CAPSULE FILLING MACHINE OPERATOR SPOKE TO DAUGHTERSARANYA, OVER THE PHONE TO EDUCATE AND INFORM PATIENT AND FAMILY OF RISKS AND CONSEQUENCES OF ASPIRATION. CAPSULE FILLING MACHINE OPERATOR ALSO REVIEWED RESULTS OF THERAPY AND RECOMMENDATIONS OF CONTINUED THERAPY 3-5 x WEEK. ALL QUESTIONS ANSWERED AT THIS TIME. CAPSULE FILLING MACHINE OPERATOR COORDINATED WITH NURSE FRAGOSO. Addendum: 05/09/[address] [facility] Amended: Links added.
[2020-05-09 19:52] VITALS: BP 132/64
[2020-05-10 00:08] VITALS: BP 140/54
[2020-05-10 04:00] VITALS: BP 135/51
[2020-05-10 05:27] LABS: BASOPHILS % (AUTO) 0.3 % (0.0-5.0); EOSINOPHILS % (AUTO) 2.7 % (0.0-8.0); HEMATOCRIT 24.9 % (36-48); LYMPHOCYTES % (AUTO) 12.8 % (21.0-51.0); MEAN CORPUSCULAR HEMOGLOBIN 29.2 pg (27.0-33.0); MEAN CORPUSCULAR HGB CONC 31.3 g/dL (32.0-36.0); MEAN CORPUSCULAR VOLUME 93.3 fL (79-99); MONOCYTES % (AUTO) 8.8 % (3.0-13.0); NEUTROPHILS % (AUTO) 70.5 % (40.0-77.0); NUCLEATED RED BLOOD CELLS 0.2 % (0.0-0.19); PLATELET COUNT (AUTO) 274 K/uL (130-400); RED BLOOD CELL COUNT(AUTO) 2.67 MIL/uL (4.00-5.50); RED CELL DISTRIBUTION WIDTH 14.8 % (11.0-15.5); WHITE BLOOD COUNT (AUTO) 12.6 K/uL (4.8-10.8)
[2020-05-10] MEDS: MEROPENEM 1 GM VIAL IVP SCH ×3 (05:28→21:18)
[2020-05-10 06:04] LABS: ALBUMIN 1.3 g/dL (3.5-5.0); BILIRUBIN,TOTAL 0.5 mg/dL (0.2-1.0); CREATININE 0.7 mg/dL (0.5-1.5); POTASSIUM 3.9 mmol/L (3.5-5.1); TOTAL PROTEIN, SERUM 5.2 g/dL (6.0-8.3)
[2020-05-10] MEDS: INSULIN HUMULIN R 100 UNIT/ML 3ML SQ SCH ×4 (06:30→21:21)
[2020-05-10 08:00] VITALS: BP 135/68
[2020-05-10] MEDS: INSULIN GLARGINE 100 UNITS/ML 10 ML VIAL SQ SCH ×2 (09:00→21:22)
[2020-05-10 11:30] VITALS: BP 132/63
[2020-05-10] MEDS: VANCOMYCIN 1GM+NS 250ML 250 ML IV SCH ×2 (12:59→21:20)
[2020-05-10] MEDS: FAMOTIDINE/PF 20 MG/2 ML VIAL IV SCH (12:59)
--- NOTE | 2020-05-10 15:20 | NUR ---
DYSPHAGIA TREATMENT COMPLETED Pt LYING IN BED LETHARGIC AND UNRESPONSIVE TO VERBAL AND/OR TACTILE STIMULI. OVENS SUPERVISOR AT BEDSIDE TO OBSERVE AND ASSIST DURING THERAPY. PATIENT WAS RAISED TO 90 DEGREES IN BED. OVENS SUPERVISOR PROVIDED ORAL CARE, BUT PATIENT REMAINED UNRESPONSIVE WITH EYES CLOSED. PATIENT RESPONDED TO WET TOOTHETTE ON LIPS BY CLOSING HER MOUTH; NO BITING OR SUCKING TOOTHETTE RESPONSES PRESENT. PATIENT REMAINED WITH OPEN MOUTH POSTURE WITH SPOON IN MOUTH. PATIENT NOTED WITH DECREASED INTRA-ORAL SENSATION. PATIENT IS AT HIGH RISK OF ASPIRATION AT THIS TIME. NO FURTHER NECTAR THICK LIQUID TRIALS WERE PRESENTED. OVENS SUPERVISOR EDUCATED OVENS SUPERVISOR OF RISK AND CONSEQUENCES OF ASPIRATION. NG TUBE IN PLACE AT THIS TIME. SKILLED SPEECH THERAPY CONTINUED TO BE RECOMMENDED 3-5 X WEEK. OVENS SUPERVISOR COORDINATED CARE WITH NURSE SANTANA Addendum: 05/10/[address] [facility] Amended: Links added.
[2020-05-10 16:00] VITALS: BP 128/48
--- NOTE | 2020-05-10 17:33 | NUR ---
DCP UPDATE: Call and spoke w pt's dtr Cindy regarding dcp. Informed her CM alert received regarding HH options for dc.. after much discussion pt's dtr mentioned that she has already contacted [facility] and is wanting to take pt home w hospice if that is an option. Informed her that this CM would call and speak to attending regarding this option. Per Cindy they really want to try and get pt home. MONICO/PC consent obtained for [facility] phone [phone]. Order obtained for Hospice eval. Will ask CM/SW to followup in am w referral.
[2020-05-10] MEDS: LACTATED RINGERS 1000ML 1,000 ML IV SCH (18:35)
--- NOTE | 2020-05-10 19:15 | NUR ---
PT REPORT GIVEN TO EVERARDO RN. PT STABLE, NO VISIBLE SIGNS OF DISTRESS. PT PROVIDER AT BEDSIDE IN ROOM. PT RESTING IN BED, VITALS WNL, IV PATENT TO LT JUGULAR.
[2020-05-10 19:41] VITALS: BP 136/74
[2020-05-11 00:14] VITALS: BP 141/69
[2020-05-11 03:47] VITALS: BP 144/67
[2020-05-11] MEDS: MEROPENEM 1 GM VIAL IVP SCH ×3 (05:28→20:47)
[2020-05-11] MEDS: INSULIN HUMULIN R 100 UNIT/ML 3ML SQ SCH ×3 (06:12→17:16)
[2020-05-11 06:23] LABS: BASOPHILS % (AUTO) 0.4 % (0.0-5.0); EOSINOPHILS % (AUTO) 2.4 % (0.0-8.0); LYMPHOCYTES % (AUTO) 12.5 % (21.0-51.0); MEAN CORPUSCULAR HEMOGLOBIN 29.1 pg (27.0-33.0); MEAN CORPUSCULAR HGB CONC 30.7 g/dL (32.0-36.0); MEAN CORPUSCULAR VOLUME 94.7 fL (79-99); MONOCYTES % (AUTO) 9.8 % (3.0-13.0); NEUTROPHILS % (AUTO) 70.1 % (40.0-77.0); NUCLEATED RED BLOOD CELLS 0.2 % (0.0-0.19); PLATELET COUNT (AUTO) 322 K/uL (130-400); RED BLOOD CELL COUNT(AUTO) 2.85 MIL/uL (4.00-5.50); RED CELL DISTRIBUTION WIDTH 14.9 % (11.0-15.5); WHITE BLOOD COUNT (AUTO) 13.1 K/uL (4.8-10.8)
[2020-05-11 06:32] LABS: ALBUMIN 1.4 g/dL (3.5-5.0); BILIRUBIN,TOTAL 0.4 mg/dL (0.2-1.0); CREATININE 0.6 mg/dL (0.5-1.5); POTASSIUM 4.1 mmol/L (3.5-5.1); TOTAL PROTEIN, SERUM 5.6 g/dL (6.0-8.3)
[2020-05-11 08:17] VITALS: BP 134/62
--- NOTE | 2020-05-11 09:20 | NUR ---
Hospice Referral SW faxed referral packet to [facility].
[2020-05-11] MEDS: FAMOTIDINE/PF 20 MG/2 ML VIAL IV SCH (09:27)
--- NOTE | 2020-05-11 09:40 | NUR ---
F/F w/dtr-re OOHDNR SW met w/pt's dtr. to discuss and provide education on OOHDNR. Dtr. not willing to sign OOHDNR until she has spoken with her father f/f and will do so late this afternoon when she visits him. Dtr. stated that she will return to bedside this evening and will sign OOHDNR at that time. This worker explained all signatures needed in order for OOHDNR to be valid; dtr. voiced an understanding. SW informed MIKE Castañeda of above.
--- NOTE | 2020-05-11 10:00 | NUR ---
TREATMENT COMPLETED. Pt'S DAUGHTER SARANYA AT BEDSIDE AT THE TIME OF THE SESSION. Pt RAISED TO 90 DEGREES IN BED DURING THE SESSION. PLAY READER PROVIDED ORAL CARE. Pt PARTICIPATED IN THERAPEUTIC TRIALS OF ADVANCED TRIALS OF THIN LIQUIDS VIA TSP X2 WITH DECREASED BOLUS CONTROL WITH POOR LABIAL SEAL; ANTERIOR SPILLAGE NOTED, +S/S OF ASPIRATION OF COUGH RESPONSE. Pt PROVIDED WITH TRIALS OF NECTAR-THICK LIQUIDS X6 WITH IMPROVED SWALLOW TRIGGER AND NO OVERT S/S OF ASPIRATION. Pt PARTICIPATED IN TRIALS OF PUREED TEXTURE X3 WITH IMPROVED BOLUS FORMATION AND MANIPULATION. Pt ABLE TO CLEAR SOLIDS FROM ORAL CAVITY PLAY READER EDUCATED DAUGHTER ON RISKS AND CONSEQUENCES OF ASPIRATION. NG TUBE IN PLACE AT THIS TIME. SKILLED SPEECH THERAPY CONTINUED TO BE RECOMMENDED 3-5X WEEK. PLAY READER COORDINATED CARE WITH NURSE LANGLEY. DAUGHTER PROVIDED WITH THICKENER AND THICKENING INSTRUCTIONS FOR THE HOME. Pt TO BE ON PUREED, NECTAR-THICK LIQUID DIET SHE IS DISCHARGING HOSPICE PER DAUGHTER. PLAY READER REITERATED HIGH RISK FOR ASPIRATION. SHE VERBALIZED UNDERSTANDING. Addendum: 05/11/20 at 1259 by GAURANG TRIPATHI, LANE ST Amended: Links added.
--- NOTE | 2020-05-11 10:20 | NUR ---
[facility] T/C from Maurice/Liamaryanne stating that pt. is accepted and requesting order to admit. SW informed Maurice that OOHDNR is pending dtr. to sign this evening. REFUGIO Bateman made aware.
--- NOTE | 2020-05-11 10:55 | NUR ---
Order to admit to [facility] faxed to hospice/[facility]KE [facility]
[2020-05-11 12:00] VITALS: BP 148/69
--- NOTE | 2020-05-11 12:09 | NUR ---
REFUGIO Note: EMS arranged for tomorrow As per MAYRA Ta pt has acceptance for [facility], pending DME to be delivered. Daughter Cindy request dcp for tomorrow morning. EMS arranged and faxed for tomorrow, primary nurse to call [facility] once pt ready to DC. Primary nurse Maddy reyes. MAYRA and CM to cont to follow up.
--- NOTE | 2020-05-11 14:50 | NUR ---
OOHDNR SW spoke with pt's dtr. Cindy who stated she'd already spoken with her father about OOHDNR and she was ready to proceed with signing it. Pt's dtr. signed document with witnesses present. MAYRA placed OOHDNR for MD signature. MIKE Castañeda made aware. CM also made aware.
--- NOTE | 2020-05-11 14:56 | NUR ---
Received an order for Physical Therapy Evaluation. Spoke to BhavanaRelaster, patient was accepted to Hospice and may DC to home tomorrow via ambulance and DME will be delivered to pt's residence.Per Bhavana Relaster to disregard Physical Therapy Evaluation.MIKE Castañeda notified that patient is already accepted to Hospice. Addendum: 05/11/20 at 1501 by LILIAM LOPEZ, PT PT Amended: Links added.
--- NOTE | 2020-05-11 15:40 | NUR ---
re evaluation of sacral drsg shows no new skin breakdown
[2020-05-11 16:00] VITALS: BP 145/62
[2020-05-11 19:30] VITALS: BP 143/96
[2020-05-11] MEDS: LACTATED RINGERS 1000ML 1,000 ML IV SCH (20:47)
[2020-05-11] MEDS: INSULIN GLARGINE 100 UNITS/ML 10 ML VIAL SQ SCH (20:50)
--- NOTE | 2020-05-11 20:50 | NUR ---
MEDS SHIFT ASSESSMENT DONE, PLEASE REFER TO CHART. DUE MEDS ADMINISTERED, TOLERATED WELL. KEPT RESTED AND COMFORTABLE. PT'S DAUGHTER AT BEDSIDE.
[2020-05-12] VITALS: BP 124/59
--- NOTE | 2020-05-12 00:15 | NUR ---
STOOL PCP IN TO DO V/S, STABLE. DIAPER CHANGED, STOOL COLLECTED FOR LAB THEN SENT FOR OCCULT BLOOD. INSULIN DOSE ADMINISTERED, TOLERATED WELL. WATER FLUSHES ADMINISTERED VIA NGT. ORAL CARE DONE. KEPT COMFORTABLE WITH HOB ELEVATED. PT'S DAUGHTER ASLEEP AT BEDSIDE. WILL CONTINUE TO MONITOR.
[2020-05-12] MEDS: INSULIN HUMULIN R 100 UNIT/ML 3ML SQ SCH ×3 (00:18→11:51)
--- NOTE | 2020-05-12 02:00 | NUR ---
ROUNDS PT RESTING WELL. NO DISTRESS NOTED. KEPT RESTED AND COMFORTABLE. WILL MONITOR PT. FAMILY ASLEEP AT BEDSIDE.
[2020-05-12 04:00] VITALS: BP 128/69
[2020-05-12] MEDS: MEROPENEM 1 GM VIAL IVP SCH ×2 (04:25→11:42)
--- NOTE | 2020-05-12 04:25 | NUR ---
MEDS PT RESTING WELL. NO CHANGE IN PT'S CONDITION. DUE MEDS ADMINISTERED, TOLERATED WELL. NEW FEEDING BOTTLE HUNG WITH NEW TUBINGS. KEPT COMFORTABLE WITH HOB ELEVATED. FOR MORE CARE.
[2020-05-12 06:14] LABS: BASOPHILS % (AUTO) 0.3 % (0.0-5.0); EOSINOPHILS % (AUTO) 2.4 % (0.0-8.0); HEMATOCRIT 27.6 % (36-48); LYMPHOCYTES % (AUTO) 12.1 % (21.0-51.0); MEAN CORPUSCULAR HEMOGLOBIN 29.1 pg (27.0-33.0); MEAN CORPUSCULAR HGB CONC 30.8 g/dL (32.0-36.0); MEAN CORPUSCULAR VOLUME 94.5 fL (79-99); MONOCYTES % (AUTO) 10.6 % (3.0-13.0); NEUTROPHILS % (AUTO) 70.9 % (40.0-77.0); PLATELET COUNT (AUTO) 352 K/uL (130-400); RED BLOOD CELL COUNT(AUTO) 2.92 MIL/uL (4.00-5.50); RED CELL DISTRIBUTION WIDTH 14.6 % (11.0-15.5); WHITE BLOOD COUNT (AUTO) 12.7 K/uL (4.8-10.8)
[2020-05-12 06:39] LABS: ALBUMIN 1.4 g/dL (3.5-5.0); BILIRUBIN,TOTAL 0.5 mg/dL (0.2-1.0); CREATININE 0.7 mg/dL (0.5-1.5); POTASSIUM 4.3 mmol/L (3.5-5.1); TOTAL PROTEIN, SERUM 5.7 g/dL (6.0-8.3)
[2020-05-12 08:20] VITALS: BP 146/67
[2020-05-12] MEDS: FAMOTIDINE/PF 20 MG/2 ML VIAL IV SCH (08:24)
[2020-05-12] MEDS: INSULIN GLARGINE 100 UNITS/ML 10 ML VIAL SQ SCH (08:26)
--- NOTE | 2020-05-12 09:48 | NUR ---
Physical Therapist spoke to patient's career portals teacher Shaniqua regarding patient is not safe to be transferred to a recliner wheelchair secondary to pt. on NG tube - precaution aspiration and patient is on right knee immobilizer.No skilled Physical Therapy Evaluation indicated.Pt. is schedule to be DC via ambulance later today and was accepted to [facility],pending DME deliver as per BhavanaProcess Excellence Manager.Notified MIKE Castañeda Addendum: 05/12/20 at 0958 by LILIAM LOPEZ PT PT Amended: Links added.
[2020-05-12 12:02] VITALS: BP 148/78
--- NOTE | 2020-05-12 18:01 | NUR ---
EMS Pt transport here. Pt discharged in good condition accompanied by sitter and EMS staff. All belongings with pt.
== END 2020-05-12 18:05 | disposition hospice, home (50) | DRG 853 ==
LOC: EDH 14:15 → EDHIP 18:35 → 3AH 23:21 → 3CH 05-07 14:27
PROVIDERS: ADMIT Hospitalist; ATTEND Hospitalist
PROC: 0QSB04Z Reposition Right Lower Femur with Internal Fixation Device, Open Approach (ICD-10-PCS; 2020-05-06)
PROC: 30233N1 Transfusion of Nonautologous Red Blood Cells into Peripheral Vein, Percutaneous Approach (ICD-10-PCS; principal; 2020-05-06 12:00)
DX: A41.51 Sepsis due to Escherichia coli [E. coli] (principal); G93.41 Metabolic encephalopathy; J18.9 Pneumonia, unspecified organism; S72.401A Unspecified fracture of lower end of right femur, initial encounter for closed fracture; E87.0 Hyperosmolality and hypernatremia; N39.0 Urinary tract infection, site not specified; D62 Acute posthemorrhagic anemia; F02.81 Dementia in other diseases classified elsewhere, unspecified severity, with behavioral disturbance; K63.3 Ulcer of intestine; R47.01 Aphasia; Z16.12 Extended spectrum beta lactamase (ESBL) resistance; Z16.24 Resistance to multiple antibiotics; E87.6 Hypokalemia; D64.9 Anemia, unspecified; R53.81 Other malaise; E11.22 Type 2 diabetes mellitus with diabetic chronic kidney disease; E78.5 Hyperlipidemia, unspecified; F02.80 Dementia in other diseases classified elsewhere, unspecified severity, without behavioral disturbance, psychotic disturbance, mood disturbance, and anxiety; G30.9 Alzheimer's disease, unspecified; I12.9 Hypertensive chronic kidney disease with stage 1 through stage 4 chronic kidney disease, or unspecified chronic kidney disease; N18.9 Chronic kidney disease, unspecified; Z20.828 Contact with and (suspected) exposure to other viral communicable diseases; E66.9 Obesity, unspecified; E86.0 Dehydration; G20 Parkinson's disease; K55.20 Angiodysplasia of colon without hemorrhage; K59.00 Constipation, unspecified; R13.10 Dysphagia, unspecified; R29.810 Facial weakness; R65.20 Severe sepsis without septic shock; W19.XXXA Unspecified fall, initial encounter; Y93.89 Activity, other specified; Y92.89 Other specified places as the place of occurrence of the external cause; Y99.8 Other external cause status; Z68.36 Body mass index [BMI] 36.0-36.9, adult; Z91.048 Other nonmedicinal substance allergy status; Z88.8 Allergy status to other drugs, medicaments and biological substances; Z74.01 Bed confinement status; Z90.710 Acquired absence of both cervix and uterus; Z87.891 Personal history of nicotine dependence; Z86.73 Personal history of transient ischemic attack (TIA), and cerebral infarction without residual deficits; Z83.3 Family history of diabetes mellitus; Z82.5 Family history of asthma and other chronic lower respiratory diseases; Z82.3 Family history of stroke; Z82.0 Family history of epilepsy and other diseases of the nervous system; Z82.49 Family history of ischemic heart disease and other diseases of the circulatory system
CPT/HCPCS: 36415; 36430; 71045; 73521; 73552; 73590; 80048; 80053; 80202; 81001; 82010; 82270; 82948; 83605; 84145; 85014; 85018; 85025; 85027; 85610; 85730; 86140; 86850; 86900; 86901; 86922; 87040; 87077; 87088; 87186; 92526; 92610; 93005; 93306; 93356; C1894; G0378; J0330; J0696; J1815; J2001; J2185; J2370; J2543; J2704; J2710; J2795; J3010; J3370; J3480; J3490; J7040; J7050; J7070; J7120; P9016; U0003